=== PATIENT | male | born 1945 | race Caucasian/White ===

== ENCOUNTER 2016-09-04 12:20 | Day surgery (SDC) | payer MEDICARE, OTHER ==
[~2016-09-04] VITALS: Ht 170.2 cm; Wt 86.2 kg
[~2016-09-04 12:20] MED LIST: FAMOTIDINE20 MG PO; LEVOTHYROXINE150 MCG PO; LEVOTHYROXINE200 MCG PO; LISINOPRIL10 MG PO; NORCO 10-325 T1 EACH PO; SIMVASTATIN80 MG PO; ULTRAM50 MG PO
--- NOTE | 2016-09-04 14:25 | NUR ---
09/04/16 1425 Heidi Naranjo REPORT FROM [facility]AC[facility] OAKES.
--- NOTE | 2016-09-16 10:25 | OR ---
[facility] [address], [place] [address] Signed DATE OF PROCEDURE: 09/04/16 PREOPERATIVE DIAGNOSES Diarrhea episodically. Family history of Crohn disease. POSTOPERATIVE DIAGNOSES No evidence of colitis. Sigmoid diverticulosis. Small polyps x5. PROCEDURES: Total colonoscopy to cecum with cold morcellation polypectomy x5. SURGEON: Nany Ashley MD ANESTHESIA: Intravenous sedation with Fentanyl 100 mcg and Versed 5 mg. INDICATION A 70-year-old white male, patient of Dr. Fabrizio Payne and known to me from the past for several issues. He has had some diarrhea, but no blood per rectum per se. He does have family history of Crohn disease in 2 family members. I have performed thyroidectomy on him for thyroid cancer as well as repair of a lung hernia following a mitral v alve repair in the past. A brother and nephew have had Crohn disease. He is admitted at this time to undergo colonoscopy to better characterize the problem and understanding the risks of bleeding, infection and perforation. FINDINGS The prep was good. Complete colonoscopy was undertaken of the cecum. There was no evidence of inflammatory lesion of any sort. He did have diverticular change of the sigmoid. There were 5 small polyps, 1 in the transverse, 3 in the hepatic flexure, and 1 in the ascending colon. All of them were small and all were completely excised with cold morcellation technique. DESCRIPTION OF PROCEDURE The patient was brought to the endoscopy suite, placed in lateral decubitus position, given intravenous sedation to the point of slurred speech and nystagmus. Digital rectal examination was normal. An Olympus video colonoscope was passed in the rectum and manipulated throughout the colon ultimately intubating the cecum itself. Upon withdrawal of the scope, there was noted to be a polyp in the mid ascending colon, which was excised with cold morcellation technique. Narrow band imaging suggested this would be adenomatous. Further withdrawal Electronically Signed By: NANY ASHLEY MD 09/16/16 1025 PATIENT NAME: DERIK ASHTON SR OPERATIVE REPORT DATE OF : 41 PHYSICIAN: NANY ASHLEY MD REPORT #: [id number] REPORT IS CONFIDENTIAL AND NOT TO BE RELEASED WITHOUT AUTHORIZATION [facility] [address], [place] [address] Signed of the hepatic flexure showed 4 small polyps, all were in the same general region, but all excised completely. Further withdrawal of the scope showed another small polyp in the proximal transverse colon and this was excised with cold morcellation technique as well. The remaining colon was examined thoroughly showing only diverticular changes of sigmoid and left colon. Retroflexed view of the rectum was normal. There was no sign of inflammation. The scope was removed and the patient was taken to recovery room in good condition. CONCLUDING DIAGNOSES Polyps x5. Diverticulosis. PLAN Recommend Citrucel 1 tablespoon each day. If diarrhea persists, consideration might be made for Questran. MD QIAN Li/Beccal /[id number] cc: Fabrizio Payne DO Electronically Signed By: NANY AHSLEY MD 08/05/17 1025 PATIENT NAME: DERIK ASHTON SR OPERATIVE REPORT DATE OF : 41 PHYSICIAN: NANY ASHLEY MD REPORT #: [id number] REPORT IS CONFIDENTIAL AND NOT TO BE RELEASED WITHOUT AUTHORIZATION
== END 2016-09-04 15:05 | disposition home or self-care (01) ==
LOC: DS 12:20 → OPS 12:20 → DS 14:00 → OPS 15:05
PROVIDERS: Surgery
PROC: 0DBK8ZX Excision of Ascending Colon, Via Natural or Artificial Opening Endoscopic, Diagnostic (ICD-10-PCS; 2016-09-04)
PROC: 0DBE8ZX Excision of Large Intestine, Via Natural or Artificial Opening Endoscopic, Diagnostic (ICD-10-PCS; principal; 2016-09-04 14:00)
DX: D12.3 Benign neoplasm of transverse colon (principal); D12.2 Benign neoplasm of ascending colon; K57.30 Diverticulosis of large intestine without perforation or abscess without bleeding; E89.0 Postprocedural hypothyroidism; I10 Essential (primary) hypertension; Z98.41 Cataract extraction status, right eye; Z98.42 Cataract extraction status, left eye; Z98.890 Other specified postprocedural states; Z86.010 Personal history of colon polyps; Z85.850 Personal history of malignant neoplasm of thyroid
CPT/HCPCS: 88305; 99152; 99153; J2250; J3010; J7120

== ENCOUNTER 2017-04-03 09:31 | Emergency (ER) | payer MEDICARE, OTHER ==
[~2017-04-03] VITALS: Ht 170.2 cm; Wt 86.2 kg
[2017-04-03] MEDS ORDERED: ROBAXIN-750750 MG PO (09:58)
== END 2017-04-03 10:27 | disposition home or self-care (01) ==
LOC: ED 09:31
DX: S39.012A Strain of muscle, fascia and tendon of lower back, initial encounter (principal); I10 Essential (primary) hypertension; Z87.891 Personal history of nicotine dependence; Z88.8 Allergy status to other drugs, medicaments and biological substances; Z79.899 Other long term (current) drug therapy; X58.XXXA Exposure to other specified factors, initial encounter
CPT/HCPCS: 99283

== ENCOUNTER 2017-07-21 09:02 | Emergency (ER) | payer OTHER, MEDICARE ==
[~2017-07-21] VITALS: Ht 177.8 cm; Wt 83.9 kg
[~2017-07-21 09:02] MED LIST changes: +ROBAXIN-750750 MG PO
== END 2017-07-21 11:25 | disposition home or self-care (01) ==
LOC: ED 09:02
DX: S51.011A Laceration without foreign body of right elbow, initial encounter (principal); S60.021A Contusion of right index finger without damage to nail, initial encounter; I10 Essential (primary) hypertension; Z87.891 Personal history of nicotine dependence; Z88.8 Allergy status to other drugs, medicaments and biological substances; Z79.899 Other long term (current) drug therapy; Z23 Encounter for immunization; W17.89XA Other fall from one level to another, initial encounter
CPT/HCPCS: 73080; 73130; 90471; 90715; 99283

== ENCOUNTER 2017-11-14 08:33 | Emergency (ER) | payer MEDICARE, OTHER ==
[~2017-11-14] VITALS: Ht 177.8 cm; Wt 86.2 kg
== END 2017-11-14 09:00 | disposition home or self-care (01) ==
LOC: ED 08:33
DX: S61.213A Laceration without foreign body of left middle finger without damage to nail, initial encounter (principal); W26.8XXA Contact with other sharp object(s), not elsewhere classified, initial encounter

== ENCOUNTER 2020-09-06 12:19 | Emergency (ER) | payer OTHER, MEDICARE ==
[~2020-09-06] VITALS: Ht 177.8 cm; Wt 86.2 kg
[2020-09-06] MEDS ORDERED: HYDROCODON-ACE1 EA10 PO (16:50)
== END 2020-09-06 17:07 | disposition home or self-care (01) ==
LOC: ED 12:19
DX: S01.81XA Laceration without foreign body of other part of head, initial encounter (principal); I71.4 Abdominal aortic aneurysm, without rupture; N28.9 Disorder of kidney and ureter, unspecified; V49.9XXA Car occupant (driver) (passenger) injured in unspecified traffic accident, initial encounter; I10 Essential (primary) hypertension; Z87.891 Personal history of nicotine dependence; Z88.8 Allergy status to other drugs, medicaments and biological substances; Z79.899 Other long term (current) drug therapy
CPT/HCPCS: 12011; 70450; 71260; 72125; 74177; 80048; 80053; 81001; 83605; 85025; 90471; 90715; 99284-25; G0480; J1885; Q9967

== ENCOUNTER 2021-12-19 16:06 | Emergency (ER) | payer MEDICARE, OTHER ==
[~2021-12-19] VITALS: Ht 177.8 cm; Wt 80.1 kg
[~2021-12-19 16:06] MED LIST changes: +ADULT ASPIRIN R81 MG PO; +CIPRO250 MG PO; +CIPRO500 MG PO; +COLACE CLEAR50 MG PO; +FLOMAX0.4 MG PO; +HYDROCODON-ACE1 EA10 PO; +LEVOTHYROXINE112 MCG PO; +REMERON15 MG PO; +SEROQUEL25 MG PO; +VISTARIL25 MG PO
== END 2021-12-19 19:56 | disposition home or self-care (01) ==
LOC: ED 16:06
DX: R41.0 Disorientation, unspecified (principal); E86.0 Dehydration; T43.595A Adverse effect of other antipsychotics and neuroleptics, initial encounter; T43.025A Adverse effect of tetracyclic antidepressants, initial encounter; T40.605A Adverse effect of unspecified narcotics, initial encounter; I10 Essential (primary) hypertension; Z87.891 Personal history of nicotine dependence; Z88.8 Allergy status to other drugs, medicaments and biological substances; Z88.5 Allergy status to narcotic agent; Z79.899 Other long term (current) drug therapy; Z79.82 Long term (current) use of aspirin; Z20.822 Contact with and (suspected) exposure to COVID-19
CPT/HCPCS: 36415; 71045; 80053; 81001; 84484; 85025; 87502; 99285-25; C9803; G0480; J7030; U0003

== ENCOUNTER 2022-09-06 14:55 | Emergency (ER) | payer MEDICARE, OTHER ==
[~2022-09-06] VITALS: Ht 177.8 cm; Wt 80.1 kg
[2022-09-06] MEDS ORDERED: QUETIAPINE FUMA25 MG PO (15:03)
[2022-09-06] MEDS ORDERED: MIRTAZAPINE15 MG PO (15:03)
[2022-09-06 17:02] VITALS: BP 156/67
--- NOTE | 2022-09-07 12:32 | EKG ---
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
== END 2022-09-06 17:04 | disposition home or self-care (01) ==
LOC: ED 14:55
DX: F03.90 Unspecified dementia, unspecified severity, without behavioral disturbance, psychotic disturbance, mood disturbance, and anxiety (principal); I10 Essential (primary) hypertension; Z87.891 Personal history of nicotine dependence; Z79.899 Other long term (current) drug therapy; Z79.82 Long term (current) use of aspirin; Z88.5 Allergy status to narcotic agent; Z88.6 Allergy status to analgesic agent
CPT/HCPCS: 36415; 70450; 71045; 80053; 81001; 85025; 93005; 93010; 96374; 99285 25; J1200; J7040